=== PATIENT | female | born 1970 | race Caucasian/White ===

== ENCOUNTER 2016-07-24 12:30 | Emergency (ER) | payer OTHER, BC ==
[2016-07-24] MEDS ORDERED: LIDOCAINE PATCH 5% TOP STA (13:12)
--- NOTE | 2016-07-24 13:15 | ED Physician Documentation ---
History of Present Illness - Stated complaint Stated Complaint: LOWER BACK PX - Chief complaint Chief Complaint: Back Pain - Additonal information Additional information: hx from pt 46 y/o f fell off a ladder on a cart while at work 2 weeks ago fell two feet onto her left side no head neck chest abd injury pain to low back and low left SI region since the injury getting worse no numbness weakness or urinary sx alos reaggrevated old R shoulder injury denies preg Review of Systems Constitutional: denies: Fever, Chills Cardiac: denies: Chest pain / pressure GI: denies: Abdominal Pain : denies: Dysuria, Hesitancy, Incontinent, Hematuria, Now EGA Musculoskeletal: reports: Back pain. denies: Neck pain Neurologic: denies: Focal weakness, Numbness, Headache, Head injury Endocrine: denies: Easy bruising / bleeding PD PAST MEDICAL HISTORY - Past Medical History Past Medical History: No - Past Surgical History Past Surgical History: No - Present Medications Home Medications: Ambulatory Orders Medication Instructions Recorded Confirmed Lidocaine Patch 5% [Lidoderm Patch] 1 each TOP DAILY PRN #10 patch 07/24/16 - Allergies Allergies/Adverse Reactions: Allergies Allergy/AdvReac Type Severity Reaction Status Date / Time No Known Drug Allergies Allergy Verified 07/24/16 12:39 - Social History Does the pt smoke?: No Smoking Status: Never smoker Does the pt drink ETOH?: Yes Does the pt have substance abuse?: No - Immunizations Immunizations are current?: Yes PD ED PE NORMAL - Vitals Vital signs reviewed: Yes - General General: Alert and oriented X 3 - HEENT HEENT: PERRL - Neck Neck: Supple, no meningeal sign - Cardiac Cardiac: RRR - Respiratory Respiratory: No respiratory distress, Clear bilaterally - Abdomen Abdomen: Soft, Non tender - Back Back: Other (low midline L spine TTP and L SI region, no bruising or swelling, hips NT and full ROm s pain) - Derm Derm: Normal color - Extremities Extremities: No deformity - Neuro Neuro: Alert and oriented X 3, No motor deficit (hip flex, knee ext foot dorsi/ pantar and great toe ext all 5/5, + sensation to all LE, denies saddle anesthesia, no clonus, patellar DTR 2+/4 lucy), No sensory deficit Results - Vitals Vitals: Vital Signs - 24 hr 07/24/16 12:37 Temperature 36.7 C Heart Rate 99 Respiratory 18 Rate Blood Pressure 127/77 O2 Saturation 99 Oxygen O2 Source Room air - Labs Labs: Laboratory Tests 07/24/16 13:25 Urine Color YELLOW Urine Clarity CLEAR Urine pH 7.0 Ur Specific [place] <=1.005 Urine Protein NEGATIVE Urine Glucose (UA) NEGATIVE Urine Ketones NEGATIVE Urine Occult Blood NEGATIVE Urine Nitrite NEGATIVE Urine Bilirubin NEGATIVE Urine Urobilinogen 0.2 (NORMAL) Ur Leukocyte Esterase NEGATIVE Ur Microscopic Review NOT INDICATED Urine Culture Comments NOT INDICATED - Rads (name of study) L spine Radiology: See rad report (neg) pelvis Radiology: See rad report (neg) shoulder Radiology: See rad report (neg) Departure - Departure Disposition: 01 Home, Self Care Condition: Good Instructions: ED Low Back Pain Injury, ED Sprain Shoulder Prescriptions: Lidocaine Patch 5% [Lidoderm Patch] 1 each TOP DAILY PRN #10 patch PRN Reason: Pain Comments: All the xrays were negative - no fractures or dislocations Recommend motrin and lidocaine patches (up to 12 hr per day) as needed for the pain If not better in two weeks, please follow up with your PMD for a recheck Forms: Activity restrictions
[2016-07-24] MEDS ORDERED: LIDOCAINE PATCH 5% TOP ONE (13:26)
[2016-07-24 13:41] LABS: BILIRUBIN,URINE NEGATIVE (NEGATIVE)
[2016-07-24 13:43] LABS: UA CHARGE (STRIP ONLY) YES; UR CULTURE IF IND NOT INDICATED
--- NOTE | 2016-07-24 14:28 | XRAY Preliminary Report ---
Exam: XR Pelvis 1 View IMPRESSION: Negative pelvis [facility] SITE ID: [id number]
--- NOTE | 2016-07-24 14:30 | XRAY Preliminary Report ---
Exam: XR Shoulder 3 View RT IMPRESSION: Negative for fracture and subluxation. [facility] SITE ID: [id number]
--- NOTE | 2016-07-24 14:30 | XRAY Report ---
EXAM: PELVIS RADIOGRAPHY EXAM DATE: 07/24/2016 01:52 PM. CLINICAL HISTORY: Fell off ladder at work L SI pain. COMPARISON: None. TECHNIQUE: 1 view. FINDINGS: Bones: Normal. No fracture or bone lesion. Joints: The visualized hip, pubis symphysis, and sacroiliac joints are preserved. No subluxation. Soft Tissues: Bowel gas pattern is unremarkable. IMPRESSION: Negative pelvis [facility] Referring Provider Line: [phone] SITE ID: [id number]
--- NOTE | 2016-07-24 14:33 | XRAY Report ---
EXAM: RIGHT SHOULDER RADIOGRAPHY EXAM DATE: 07/24/2016 02:16 PM. CLINICAL HISTORY: Right shoulder pain. Trauma. COMPARISON: None. TECHNIQUE: 3 views. FINDINGS: Bones: Normal. No fracture or bone lesion. Joints: The glenohumeral and acromioclavicular joints are normal. Soft tissues: The visualized hemithorax is unremarkable. No soft tissue swelling. IMPRESSION: Negative for fracture and subluxation. [facility] Referring Provider Line: [phone] SITE ID: [id number]
--- NOTE | 2016-07-24 14:33 | XRAY Preliminary Report ---
Exam: XR Lumbar Spine 2 View IMPRESSION: No fracture or subluxation. [facility] SITE ID: [id number]
--- NOTE | 2016-07-24 14:36 | XRAY Report ---
EXAM: LUMBOSACRAL SPINE RADIOGRAPHY EXAM DATE: 07/24/2016 02:16 PM. CLINICAL HISTORY: Fell off ladder at work low L spine and L SI region. COMPARISONS: None. TECHNIQUE: 3 views. FINDINGS: Alignment: Normal. No spondylolisthesis or scoliosis. Bones: Five [id number] lumbar vertebral bodies are present. No acute fracture visualized. Disks: Normal. Disk heights are maintained. Facets: Satisfactory alignment. Sacroiliac Joints: Unremarkable. Soft Tissues: Normal. The visualized bowel gas pattern is normal. IMPRESSION: No fracture or subluxation. [facility] Referring Provider Line: [phone] SITE ID: [id number]
[2016-07-24 15:59] VITALS: BP 122/80
== END 2016-07-24 15:57 | disposition home or self-care (01) ==
LOC: ED 12:30
DX: S43.401A Unspecified sprain of right shoulder joint, initial encounter (principal); W11.XXXA Fall on and from ladder, initial encounter; Y99.0 Civilian activity done for income or pay
CPT/HCPCS: 72100; 72170; 73030; 81003; 99283; 99284; A9270; 81001; 87086

== ENCOUNTER 2018-02-12 05:01 | Emergency (ER) | payer BC, OTHER ==
--- NOTE | 2018-02-12 05:07 | ED Physician Documentation ---
PD HPI URI - Stated complaint Stated Complaint: COUGH,SHORTNESS OF BREATH - Chief complaint Chief Complaint: Resp - History obtained from History obtained from: Patient - History of Present Illness Timing - onset: How many weeks ago (2) Timing duration: Weeks (2) Timing details: Gradual onset (She has had cough and congestion about 2 weeks ago that lasted for a week and then seemed to be improved for several days. She has had cough with shortness of breath and wheezing tightness for the past several days again and worse than it was prior. She states her throat is very raw and has had some scant blood in her sputum with coughing. She denies fevers.) Associated symptoms: Productive cough, Dyspnea. No: Fever, Chest pain, Bilateral edema Contributing factors: Sick contact (her had URI then pneumonia couple weeks ago). No: Travel Improves by: No: Medication (OTC cough meds) Worsened by: Activity Similar symptoms before: Has not had sx before Recently seen: Not recently seen Review of Systems Constitutional: reports: Myalgias. denies: Fever, Chills Nose: denies: Rhinorrhea / runny nose, Congestion Throat: reports: Sore throat Respiratory: reports: Dyspnea, Cough, Wheezing GI: denies: Abdominal Pain, Nausea, Vomiting, Diarrhea Skin: denies: Rash, Lesions Musculoskeletal: denies: Extremity swelling Neurologic: reports: Generalized weakness. denies: Focal weakness, Numbness, Near syncope PD PAST MEDICAL HISTORY - Past Medical History Cardiovascular: None Respiratory: None Endocrine/Autoimmune: None - Past Surgical History Past Surgical History: No - Present Medications Home Medications: Ambulatory Orders Medication Instructions Recorded Confirmed Albuterol Sulf [Ventolin Hfa 1 - 2 puffs INH Q4HR PRN #1 inhaler 02/12/18 Inhaler] Benzonatate [Tessalon Perle] 100 - 200 mg PO TID PRN #30 capsule 02/12/18 Dexamethasone [Decadron] 4 mg PO DAILY #5 tablet 02/12/18 Doxycycline Hyclate 100 mg PO BID #14 capsule 02/12/18 guaiFENesin/CODEINE [Robitussin AC] 5 ml PO Q6H PRN #120 ml 02/12/18 - Allergies Allergies/Adverse Reactions: Allergies Allergy/AdvReac Type Severity Reaction Status Date / Time No Known Drug Allergies Allergy Verified 02/12/18 05:09 - Social History Does the pt smoke?: No Smoking Status: Never smoker Does the pt drink ETOH?: Yes Does the pt have substance abuse?: No - Immunizations Immunizations are current?: Yes PD ED PE NORMAL - Vitals Vital signs reviewed: Yes - General General: Alert and oriented X 3, Well developed/nourished - HEENT HEENT: Pharynx benign - Neck Neck: Supple, no meningeal sign, No adenopathy - Cardiac Cardiac: RRR, No murmur - Respiratory Respiratory: No: Clear bilaterally (no coarse sounds. Does have exp wheezes dif fusely, particularly with coughing. ) - Abdomen Abdomen: Soft, Non tender - Back Back: No CVA TTP - Derm Derm: Normal color, Warm and dry - Extremities Extremities: No deformity, No tenderness to palpate, Normal ROM s pain, No edema, No calf tenderness / cord - Neuro Neuro: Alert and oriented X 3, No motor deficit, Normal speech Eye Opening: Spontaneous Motor: Obeys Commands Verbal: Oriented GCS Score: 15 Results - Vitals Vitals: Vital Signs - 24 hr 02/12/18 02/12/18 02/12/18 05:06 05:44 05:55 Temperature 36.6 C Heart Rate 83 74 85 Respiratory 20 18 18 Rate Blood Pressure 150/82 H 127/79 O2 Saturation 96 96 Oxygen O2 Source Room air - Rads (name of study) chest xray Radiology: Prelim report reviewed, EMP read contemporaneously PD MEDICAL DECISION MAKING - ED course Complexity details: considered differential (Resurgence and worsening of cough after a chest cold type pattern the week prior. Consider bacterial secondary infection. She is having some wheezing so will go with an albuterol inhaler as well as steroid and cough medications and prescribe doxycycline for the infection.), d/w patient Departure - Departure Disposition: 01 Home, Self Care Clinical Impression: Acute bronchitis Qualifiers: Bronchitis organism: unspecified organism Qualified Code(s): J20.9 - Acute bronchitis, unspecified Condition: Stable Record reviewed to determine appropriate education?: Yes Instructions: ED Upper Resp Infec Abx Tx Follow-Up: Arun Romero DO [Primary Care Provider] - Prescriptions: Albuterol Sulf [Ventolin Hfa Inhaler] 1 - 2 puffs INH Q4HR PRN #1 inhaler PRN Reason: Shortness Of Air/Wheezing Benzonatate [Tessalon Perle] 100 - 200 mg PO TID PRN #30 capsule PRN Reason: Cough Dexamethasone [Decadron] 4 mg PO DAILY #5 tablet Doxycycline Hyclate 100 mg PO BID #14 capsule guaiFENesin/CODEINE [Robitussin AC] 5 ml PO Q6H PRN #120 ml PRN Reason: Cough Comments: Use albuterol inhaler 2 puffs 4 times a day and extra times if needed. Drink lots of fluids. Use Tessalon and Robitussin-AC medications for cough as needed. Decadron steroid for bronchial inflammation will reduce the discomfort and cough. Doxycycline for potential bacterial infection as a cause. Recheck if not improving over the next several days and return sooner if worsening.
[2018-02-12] MEDS ORDERED: ALBUTEROL NEB 2.5 MG/3 ML INH STA (05:19)
[2018-02-12] MEDS ORDERED: DOXYCYCLINE 100 MG TABLET PO STA (05:19)
[2018-02-12] MEDS ORDERED: guaiFENesin/CODEINE 5 ML UDC PO STA (05:19)
[2018-02-12] MEDS ORDERED: BENZONATATE 100 MG CAPSULE PO STA (05:19)
[2018-02-12] MEDS ORDERED: DEXAMETHASONE 10 MG/ML VIAL PO STA (05:19)
[2018-02-12 05:56] VITALS: BP 127/79
--- NOTE | 2018-02-12 06:06 | XRAY Report ---
Reason: cough and dyspnea for 2 weeks Procedure Date: 02/12/2018 Accession Number: [id number] / [id number] Procedure: XR - Chest 2 View X-Ray CPT Code: 54452 FULL RESULT: EXAM: CHEST RADIOGRAPHY EXAM DATE: 02/12/2018 05:56 AM. CLINICAL HISTORY: Cough and dyspnea for 2 weeks. COMPARISON: None. TECHNIQUE: 2 views. FINDINGS: Lungs/Pleura: No focal opacities evident. No pleural effusion. No pneumothorax. Normal volumes. Mediastinum: Heart and mediastinal contours are unremarkable. Other: None. IMPRESSION: Normal 2-view chest radiography. [facility]
== END 2018-02-12 06:12 | disposition home or self-care (01) ==
LOC: ED 05:01
DX: J20.9 Acute bronchitis, unspecified (principal)
CPT/HCPCS: 71046; 94640; 99283; A9270

== ENCOUNTER 2018-07-18 10:54 | Emergency (ER) | payer BC, OTHER ==
[2018-07-18 11:04] VITALS: BP 136/79
--- NOTE | 2018-07-18 12:06 | ED Physician Documentation ---
PD HPI UPPER EXT INJURY - Stated complaint Stated Complaint: RT SHOULDER PAIN - Chief complaint Chief Complaint: Ext Problem - History obtained from History obtained from: Patient - History of Present Illness Location: Right, Shoulder Type of injury: Other (pain, ongoing for many years, 10 per patient, worse for a month with intermittent tingling and numbness of fingers) Where injury occurred: Home Timing - onset: How many years ago (10) Timing - details: Gradual onset, Still present Pain level max: 5 Pain level now: 5 Improved by: Rest Worsened by: Moving, Palpating Associated symptoms: Numbness, Tingling. No: Weakness, Swelling, Discolored Contributing factors: No: Anticoagulated Similar symptoms before: No diagnosis (has not seen anyone regarding this issue or had any evaluation.) Recently seen: Not recently seen - Treatment prior to arrival Treatment prior to arrival: has tried ice and heating pads. Has not taken any OTC meds Review of Systems Ten Systems: 10 systems reviewed and negative Constitutional: denies: Fever Skin: reports: Reviewed and negative. denies: Rash, Abrasion (s), Laceration (s) Musculoskeletal: reports: Neck pain, Extremity pain, Joint pain. denies: Back pain, Extremity swelling, Joint swelling Neurologic: reports: Numbness (of R fingers). denies: Generalized weakness, Focal weakness PD PAST MEDICAL HISTORY - Past Medical History Past Medical History: Yes Cardiovascular: None Respiratory: None Endocrine/Autoimmune: None - Past Surgical History Past Surgical History: No /RIVER RAT: Other - Present Medications Home Medications: Ambulatory Orders Medication Instructions Recorded Confirmed No Known Home Medications 07/18/18 07/18/18 - Allergies Allergies/Adverse Reactions: Allergies Allergy/AdvReac Type Severity Reaction Status Date / Time No Known Drug Allergies Allergy Verified 07/18/18 11:04 - Social History Does the pt smoke?: No Smoking Status: Never smoker Does the pt drink ETOH?: Yes Does the pt have substance abuse?: No - Immunizations Immunizations are current?: Yes - POLST Patient has POLST: No PD ED PE NORMAL - Vitals Vital signs reviewed: Yes - General General: Alert and oriented X 3 - HEENT HEENT: Atraumatic - Neck Neck: Supple, no meningeal sign, No bony TTP, No JVD, Other (Right posterolateral paraspinal neck tenderness that is moderate, however pt has full ROM) - Cardiac Cardiac: RRR - Respiratory Respiratory: No respiratory distress - Abdomen Abdomen: Non distended - Female Female : Deferred - Rectal Rectal: Deferred - Derm Derm: Normal color, Warm and dry, No rash, Other - Neuro Neuro: Alert and oriented X 3, No motor deficit, No sensory deficit Eye Opening: Spontaneous Motor: Obeys Commands Verbal: Oriented GCS Score: 15 PD ED PE EXPANDED - Extremities Extremities: Right shoulder, Sensory intact, Vascular intact, Other (pain with empty can test, but full normal ROM ). No: Deformity, Tenderness, Limited ROM Results - Vitals Vitals: Vital Signs - 24 hr 07/18/18 11:02 Temperature 36.7 C Heart Rate 76 Respiratory 18 Rate Blood Pressure 136/79 H O2 Saturation 97 Oxygen O2 Source Room air - Rads (name of study) No standard instances Radiology: Final report received (no acute abnormality, mild arthritis) PD MEDICAL DECISION MAKING - ED course Complexity details: reviewed results, considered differential, d/w patient ED course: 48 y/o F with hx of shoulder pain for 10 years, feeling worse for a month. Pt with no new injury or trauma. Reports 1 month of tingling and numbness in the r arm and hand with neck strain as well. Exam shows full ROM and normal sensation and strength. DDx - sprain, RC tear/tendonitis, fracture, radiculopathy, arthritis. Xray negative except for arhtritis. Pt needs to f/u with Ortho as outpt given chronicity of symptoms. Departure - Departure Disposition: ED Left Without Being Seen Clinical Impression: Right shoulder strain Condition: Stable Record reviewed to determine appropriate education?: Yes Instructions: ED Sprain Shoulder Follow-Up: your,doctor [Other] Comments: You can try ibuprofen 600mg three times a day to decrease pain and inflammation. Your xray here today is negative for fracture or acute abnormality. Follow up with your doctor for further evaluation, imaging and Orthopedic referral. Discharge Date/Time: 07/18/18 12:18
--- NOTE | 2018-07-18 12:10 | XRAY Report ---
Reason: atraumatic R shoulder pain Procedure Date: 07/18/2018 Accession Number: [id number] / [id number] Procedure: XR - Shoulder 3 View RT CPT Code: FULL RESULT: EXAM: RIGHT SHOULDER RADIOGRAPHY EXAM DATE: 07/18/2018 11:51 AM. CLINICAL HISTORY: Atraumatic R shoulder pain. COMPARISON: SHOULDER 3 VIEW RT 07/24/2016 1:51 PM. TECHNIQUE: 3 views. FINDINGS: Bones: Normal. No fracture or bone lesion. Joints: AC joint hypertrophy. Small osteophyte glenohumeral joint without joint space narrowing. Soft tissues: The visualized hemithorax is unremarkable. No soft tissue swelling. IMPRESSION: Mild DJD [facility]
== END 2018-07-18 12:18 | disposition home or self-care (01) ==
LOC: ED 10:54
DX: S46.911A Strain of unspecified muscle, fascia and tendon at shoulder and upper arm level, right arm, initial encounter (principal); S16.1XXA Strain of muscle, fascia and tendon at neck level, initial encounter; X58.XXXA Exposure to other specified factors, initial encounter; M19.011 Primary osteoarthritis, right shoulder
CPT/HCPCS: 99282